=== PATIENT | female | born 2000 | race Asian ===

== ENCOUNTER 2021-07-08 09:12 | Day surgery (SDC) | payer OTHER ==
[2021-07-08] MEDS ORDERED: cefOXitin Sodium/Dextrose 2 GM/50 ML BAG ONE (10:36)
[2021-07-08] MEDS ORDERED: Bupivacaine 0.25% HCL 30 ML VIAL ONE (11:00)
[2021-07-08] MEDS ORDERED: Lidocaine 1% w/Epinephrine 1:100K 20 ML VIAL ONE (11:00)
[2021-07-08] MEDS ORDERED: Dexmedetomidine 200 MCG/2 ML VIAL ONE (11:15)
[2021-07-08] MEDS ORDERED: Midazolam HCl 2 mg/2 ml Vial ONE ×2 (11:15→11:16)
[2021-07-08] MEDS ORDERED: Fentanyl 100 MCG/2 ML VIAL ONE ×3 (11:15→14:15)
[2021-07-08] MEDS ORDERED: Lidocaine 1% PF 5 ML VIAL ONE (12:35)
[2021-07-08] MEDS ORDERED: PHENYLEPHRINE-NS 100 MCG/ML 10 ML SYRINGE ONE (12:35)
[2021-07-08] MEDS ORDERED: Ondansetron ORAL SOLN. 4 MG/5 ML UDCUP ONE (12:35)
[2021-07-08] MEDS ORDERED: Rocuronium Bromide 10 MG/ML (10ML VIAL) ONE (12:35)
[2021-07-08] MEDS ORDERED: Glycopyrrolate 0.2 MG/ML 5 ML SYRINGE ONE (12:35)
[2021-07-08] MEDS ORDERED: PROPOFOL 200 MG/20 ML VIAL ONE (12:35)
[2021-07-08] MEDS ORDERED: Dexamethasone 20 MG/5 ML VIAL ONE (12:35)
[2021-07-08] MEDS ORDERED: Ketorolac Tromethamine 30 MG/ML VIAL ONE (12:35)
[2021-07-08] MEDS ORDERED: HYDROcodone/Acetaminophen 5/325 mg Tablet ONE (15:32)
[2021-07-08] MEDS ORDERED: Promethazine HCl 25 MG/ML VIAL ONE (15:56)
== END 2021-07-08 16:50 | disposition home or self-care (01) ==
LOC: SDC 09:12
PROVIDERS: ATTEND Surgery
PROC: 0DTJ4ZZ Resection of Appendix, Percutaneous Endoscopic Approach (ICD-10-PCS; principal; 2021-07-08)
DX: K35.80 Unspecified acute appendicitis (principal)
CPT/HCPCS: 88304; J0694; J1100; J1885; J2250; J2550; J2704; J3010; Q0162; S0020